=== PATIENT | female | born 1995 | race African-American/Black ===

== ENCOUNTER 2018-08-31 23:13 | Emergency (ER) | payer OTHER ==
[2018-09-01] MEDS: KETOROLAC 30 MG INJ IV (02:44)
[2018-09-01] MEDS: ONDANSETRON 4 MG INJ IV (02:44)
[2018-09-01] MEDS: morphine 4 MG/ML VIAL IV (02:44)
[2018-09-01] MEDS: SOD CHLORIDE 0.9% 500 ML IV (02:44)
== END 2018-09-01 04:44 | disposition home or self-care (01) ==
LOC: FTE 09-01 04:44
DX: G43.909 Migraine, unspecified, not intractable, without status migrainosus (principal)
CPT/HCPCS: 81025; 96361; 96374; 96375; 99284-25

== ENCOUNTER 2018-09-03 19:57 | Emergency (ER) | payer OTHER ==
[2018-09-04] MEDS: METOCLOPRAMIDE 10 MG INJ IV (02:31)
[2018-09-04] MEDS: KETOROLAC 30 MG INJ IV (02:31)
[2018-09-04] MEDS: SOD CHLORIDE 0.9% 500 ML IV (02:31)
[2018-09-04] MEDS: morphine 4 MG/ML VIAL IV (02:31)
== END 2018-09-04 03:43 | disposition home or self-care (01) ==
LOC: FTE 19:57
DX: G43.909 Migraine, unspecified, not intractable, without status migrainosus (principal)
CPT/HCPCS: 81025; 96374; 96375; 99284-25